=== PATIENT | female | born 2000 | race Caucasian/White ===

== ENCOUNTER 2024-05-25 21:43 | Emergency (ER) | payer BC ==
[2024-05-25 21:47] VITALS: TEMP 99.1
[2024-05-25] MEDS ORDERED: Sodium Chloride 0.9% 1000 ML 1,000 ML ONE (22:42)
[2024-05-25] MEDS: Sodium Chloride 0.9% 1000 ML 1,000 ML IV SCH (22:45)
[2024-05-25 23:05] LABS: ALBUMIN 4.4 g/dL (3.5-5.0); ANION GAP 13.9 MEQ/L (5-15); BILIRUBIN,TOTAL 0.2 mg/dL (0.2-1.3); Calcium 9.7 mg/dL (8.4-10.2); Creatinine 1 0.72 mg/dL (0.52-1.04); EST GLOMERULAR FILTRATION RATE 118.9 ML/MIN; HCG SERUM TEST NEGATIVE (NEGATIVE); Potassium 3.8 mmol/L (3.5-5.1); Total Protein 7.2 g/dL (6.3-8.2)
[2024-05-25 23:07] LABS: Absolute Neutrophil Ct (ANC) 8.86 x10^3/uL (1.56-6.13); BASOPHIL % 0.3 % (0.1-1.2); Basophil (Absolute #) 0.04 x10^3/uL (0.01-0.08); Eosinophil % 0.9 % (0.7-5.8); Eosinophil (Absolute #) 0.11 x10^3/uL (0.04-0.36); Hemoglobin 13.2 g/dL (11.2-15.7); IMMATURE GRAN # 0.05 x10^3u/L (0.001-0.031); IMMATURE GRAN % 0.4 % (0.001-0.429); Lymphocyte (Absolute #) 3.02 x10^3/uL (1.18-3.74); Lymphocytes % 23.6 % (19.3-51.7); Mean Corpuscular Hemoglobin 28.7 pg (25.6-32.2); Mean Platelet Volume 9.3 fL (9.4-12.3); Monocyte (Absolute #) 0.72 x10^3/uL (0.24-0.86); Monocytes % 5.6 % (4.7-12.5); Neutrophil % 69.2 % (34.0-71.1); Platelet Count 310 x10^3/uL (182-369); Red Cell Distribution Width 12.9 % (11.7-14.4); White Blood Count 12.8 x10^3/uL (3.98-10.04)
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
[2024-05-26 01:06] LABS: Appearance Clear (Clear); Bacteria Few /HPF (None Seen); Bilirubin Negative (Negative); Blood Negative (Negative); Epithelial Cells Rare /HPF (None Seen); Glucose, Urine Negative (Negative); Ketones Trace (Negative); Leukocyte Esterase Negative (Negative); Nitrite Negative (Negative); Ph 5.5 (4.6-8.0); Protein,Urine Dip Trace (Negative); RBC 0-2 /HPF (0-5); Specific Gravity >=1.030 (1.005-1.030); Urobilinogen 0.2 mg/dL (0.2)
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
[2024-05-26] MEDS ORDERED: Macrobid 100MG Capsule ONE (01:50)
[2024-05-26] MEDS: Macrobid 100MG Capsule PO ONE (01:51)
[2024-05-26 02:02] VITALS: BP 117/68; PULSE 95; RESP 18; O2SAT 96
== END 2024-05-26 02:10 | disposition home or self-care (01) ==
LOC: ED 21:43 → SUPCPDRO 21:43 → ED 05-26 02:10
DX: Z04.1 Encounter for examination and observation following transport accident (principal); J32.9 Chronic sinusitis, unspecified; R91.1 Solitary pulmonary nodule; N39.0 Urinary tract infection, site not specified; R07.9 Chest pain, unspecified; M54.2 Cervicalgia; Z79.899 Other long term (current) drug therapy; Z72.0 Tobacco use
CPT/HCPCS: 36000; 36415; 70490; 71260; 74177; 80053; 81001; 84484; 84703; 85025; 87086; 99285; A9270-GY